=== PATIENT | male | born 1990 | race Caucasian/White ===

== ENCOUNTER 2022-09-23 15:16 | Emergency (ER) | payer SELFPAY ==
[2022-09-23 15:24] VITALS: BP 152/80; PULSE 93; RESP 16; TEMP 37.2; O2SAT 100
--- NOTE | 2022-09-23 16:17 | ED.URI ---
HPI - URI/Sore Throat General Chief Complaint: Upper Respiratory Infection Stated Complaint: Fever/Chest Congestion Time Seen by Provider: 09/23/22 16:17 Source: patient and RN notes reviewed Mode of arrival: ambulatory Limitations: no limitations History of Present Illness HPI Narrative: 32 y/o male presented for c/o worsening cough and fever up to 101 over the last 3 days. Endorses he likely had influenza one week ago, as his sons were dx with it and he had cough, fever. Patient reports temporary improvement for a few days then symptoms returned. Endorses feeling 'tight' in the chest with coughing. History of pneumonia after covid and is concerned for this again. Denies shortness of breath, wheezing, nausea, vomiting, diarrhea. Taking Tylenol and ibuprofen for symptoms. He also endorses he has cortical baby and has been moving. MD elicited complaint: cough Related Data Allergies Allergy/AdvReac Type Severity Reaction Status Date / Time No Known Allergies Allergy Mild Verified 09/23/22 16:24 Review of Systems Review of Systems: ROS per HPI Exam Narrative: GENERAL: well-appearing EYES: PERRLA, conjunctivae clear ENT: Mucous membranes moist. TMs pearly delgado with dull light reflex bilaterally; no tragal tenderness. Oropharynx erythematous without lesions or exudate, no drooling, no hoarseness, no trismus, uvula midline. CHEST: Clear to auscultation, breath sounds equal. No wheezing, rhonchi, rales, or stridor. No respiratory distress, speaks in full sentences. HEART: Regular rate and rhythm. No murmur heard. SKIN: Warm, dry, no rash. NEURO: Alert and oriented x3. PSYCH: Normal mood and affect Course Course Emergency Course: Patient is aware of diagnosis, understands and agrees to treatment plan. Anticipatory guidance given. Patient agrees to follow-up as directed and is aware of reasons to seek care at the emergency department. Portions of this record may have been created with voice recognition software Level of Care: Express Care Visit Vital Signs Vital signs: Vital Signs Temperature 98.9 F 09/23/22 15:24 Pulse Rate 93 09/23/22 15:24 Respiratory Rate 16 09/23/22 15:24 Blood Pressure 152/80 H 09/23/22 15:24 Pulse Oximetry 100 09/23/22 15:24 Oxygen Delivery Room Air 09/23/22 15:24 Temperature 98.9 F 09/23/22 15:24 Pulse Rate 93 09/23/22 15:24 Respiratory Rate 16 09/23/22 15:24 Blood Pressure 152/80 H 09/23/22 15:24 Pulse Oximetry 100 09/23/22 15:24 Oxygen Delivery Room Air 09/23/22 15:24 reviewed MDM - URI/Sore Throat MDM Narrative Medical decision making narrative: Advised supportive measures and signs/symptoms to go to the ER. Pt is appropriate for outpt treatment and f/u. Differential Diagnosis Differential diagnosis: Likely upper respiratory infection, sinusitis, viral infection and bronchitis Discharge Plan Discharge Clinical Impression: Viral infection Patient Disposition: Home, Self-Care Condition: Stable Instructions: Acute Bronchitis (ED) Additional Instructions: Recommend Flonase spray and Zyrtec (or Claritin/Smitha) over the counter Cough syrup may cause drowsiness; avoid driving or take it at night time. Tylenol 1000mg every 8 hours as needed for pain Symptomatic treatment includes: rest, fluids, and increase humidity of the air at home. Follow up with your primary care provider in 1 week. Go to the ER for worsening symptoms or concerns. Prescriptions: New prednisone 20 mg tablet 40 mg PO DAILY 5 Days Qty: 10 0RF Follow-up/Referrals: PHYSICIAN NOT ON STAFF,NONSTAFF [Primary Care Provider] - Time of Disposition: 16:41
== END 2022-09-23 16:56 | disposition home or self-care (01) ==
PROVIDERS: Emergency Provider Nurse Practitioner Family
DX: B34.9 Viral infection, unspecified (principal)
CPT/HCPCS: 99213; G0463

== ENCOUNTER 2022-11-08 09:47 | Emergency (ER) | payer OTHER, SELFPAY ==
[2022-11-08 09:52] VITALS: BP 148/76; PULSE 98; RESP 20; TEMP 39.2; O2SAT 98
--- NOTE | 2022-11-08 10:10 | ED.URI ---
HPI - URI/Sore Throat General Chief Complaint: Upper Respiratory Infection Stated Complaint: flu symptoms Time Seen by Provider: 11/08/22 10:11 Source: patient, RN notes reviewed and old records reviewed Mode of arrival: ambulatory Limitations: no limitations History of Present Illness HPI Narrative: 32 year old male accompanied by spouse and son presents to express care with complaints of symptoms of headache, fatigue, fevers, joint pains, sore throat, nasal stuffiness starting yesterday. Patient reports that he had fevers up to 102F, took Advil this morning but threw it up so then took Tylenol about an hour later and has kept this medication down. Patient remains febrile at this time with generalized malaise and body aches, denies anyone at home presently ill. Patient states that he was ill around Thanksgiving with fever for about 8 days and son had flu at that time so it was presumed that he had flu also. Patient reports that he has had 2 COVID vaccinations but no Booster, has had Flu shot. MD elicited complaint: fever, sore throat, nasal congestion and other (myalgias) Onset (ago): day(s) (1) Able to tolerate fluids by mouth: Yes Treatments prior to arrival: acetaminophen and ibuprofen Related Data Allergies Allergy/AdvReac Type Severity Reaction Status Date / Time No Known Allergies Allergy Mild Verified 09/23/22 16:24 Review of Systems Review of Systems: CONSTITUTIONAL: Reports malaise, chills, sweats, or fever. EYES: Denies visual changes, redness, or discharge. ENT: Reports rhinorrhea, congestion, sinus pain, no otalgia, positive for sore throat. CARDIOVASCULAR: Denies chest pain, palpitations, or edema. RESPIRATORY: Reports no cough.? Denies dyspnea. GASTROINTESTINAL: Denies abdominal pain,some nausea, vomiting, no diarrhea SKIN: Denies rash or itching. MUSCULOSKELETAL: Reports myalgia. NEUROLOGIC: Reports headache. All systems reviewed & are unremarkable except as noted in HPI and below PMFSH Social History Social History (Updated 11/08/22 @ 10:27 by Anyi Vaca NP) Smoking status: Never smoker Alcohol intake: current Alcohol use details: social Substance use type: does not use Gender identity (if verbalized by the patient): Male Comments At time of signature, agree with nursing past medical, surgical, social and family history. There is no relevant family history pertinent to the presenting complaint Exam Narrative: GENERAL: Well-appearing, well-nourished, and in no acute distress. HEAD: Normocephalic EYES: PERRLA, conjunctivae clear ENT: Nares clear, turbinates edematous and erythematous, clear discharge. Mucous membranes moist. TM pearly delgado with dull light reflex bilaterally; no tragal tenderness. Oropharynx erythematous without lesions. Tonsils not enlarged and without exudate, no drooling, no hoarseness, no trismus, uvula midline.post nasal drainage noted NECK: Supple. No lymphadenopathy CHEST: Clear to auscultation, breath sounds equal. No wheezing, rhonchi, rales, or stridor. No respiratory distress, speaks in full sentences.no cough noted SAO2 98% on room air HEART: Regular rate and rhythm. No murmur heard. SKIN: Warm, dry, no rash. NEURO: Alert and oriented x3. PSYCH: Normal mood and affect Course Course Emergency Course: Patient is aware of diagnosis, understands and agrees to treatment plan.? Anticipatory guidance given.? Patient agrees to follow-up as directed and is aware of reasons to seek care at the emergency department. Portions of this record may have been created with voice recognition software Level of Care: Express Care Visit Vital Signs Vital signs: Vital Signs Temperature 39.2 C H 11/08/22 09:52 Pulse Rate 98 11/08/22 09:52 Respiratory Rate 20 11/08/22 09:52 Blood Pressure 148/76 H 11/08/22 09:52 Pulse Oximetry 98 11/08/22 09:52 Oxygen Delivery Room Air 11/08/22 09:52 Temperature 39.2 C H 11/08/22 09:5
== END 2022-11-08 10:52 | disposition home or self-care (01) ==
PROVIDERS: Emergency Provider Registered Nurse; PCP Nurse Practitioner Family
DX: B34.9 Viral infection, unspecified (principal); Z20.822 Contact with and (suspected) exposure to COVID-19
CPT/HCPCS: 87081; 87426; 87804; 87880; 99213; C9803; G0463

== ENCOUNTER 2023-04-03 18:31 | Emergency (ER) | payer OTHER, SELFPAY ==
--- NOTE | ~2023-04-03 | XR_ITS ---
EXAMINATION: XR foot RT min 3V DATE: 04/03/2023 18:49 INDICATION: Right foot pain TECHNIQUE: Dorsoplantar, lateral, and 2 oblique views of the right foot were obtained. COMPARISON: None. FINDINGS: Bone alignment is normal. There is no fracture. There is soft tissue swelling of the midfoo t. IMPRESSION: 1. Soft tissue swelling without acute osseous abnormality. Reviewed, dictated and finalized at location F.
[2023-04-03 18:42] VITALS: BP 135/80; PULSE 83; RESP 18; TEMP 37.1; O2SAT 100
--- NOTE | 2023-04-03 18:50 | ED.LOWEXIN ---
HPI - Extremity Injury (Lower) General Chief Complaint: Extremity Injury, Lower Stated Complaint: Right Ankle/Foot Injury Time Seen by Provider: 04/03/23 18:50 Source: patient Mode of arrival: ambulatory Limitations: no limitations History of Present Illness HPI Narrative: 32-year-old male presents with complaint of pain to lateral aspect of right foot for 4 days. Patient states he was on vacation and [facility], rolled foot on last stair while walking down steps. Patient reports pain when ambulatory. No point tenderness. Arrived wearing a splint from home. States that his friend is an motor tune up specialist and told him to get an x-ray. Ambulatory without limp. All systems reviewed and negative except as noted above. Related Data Home Medications Medication Instructions Recorded Confirmed No Home Medications 04/03/23 04/03/23 Allergies Allergy/AdvReac Type Severity Reaction Status Date / Time No Known Allergies Allergy Mild Verified 04/03/23 18:46 Review of Systems Review of Systems: CONSTITUTIONAL: Denies fever, chills, or sweats. EYES: Denies visual changes, redness, or discharge. ENT: Denies rhinorrhea, congestion, sore throat, or otalgia. CARDIOVASCULAR: Denies chest pain, palpitations, or edema. RESPIRATORY: Denies cough or dyspnea. GASTROINTESTINAL: Denies abdominal pain, nausea, vomiting, or diarrhea. GENITOURINARY: Denies dysuria or hematuria. SKIN: Denies rash or itching. MUSCULOSKELETAL: Reports pain, swelling and bruising to right foot. NEUROLOGIC: Denies headache, numbness, or weakness. PSYCHIATRIC: Denies anxiety or depression. All other systems reviewed are negative, except as documented in HPI. PMFSH Social History Social History (Updated 11/08/22 @ 10:27 by Anyi Vaca NP) Smoking status: Never smoker Alcohol intake: current Alcohol use details: social Substance use type: does not use Gender identity (if verbalized by the patient): Male Comments At time of signature, agree with nursing past medical, surgical, social and family history. There is no relevant family history pertinent to the presenting complaint. Exam Narrative: GENERAL: This is a well-nourished, well-developed patient, in no apparent distress. HEAD: normocephalic, atraumatic. EYES: PERRL. Sclera clear/white. Vision is grossly intact. EARS: External ears normal NOSE: External nose normal NECK: Neck supple, non-tender without lymphadenopathy, masses or thyromegaly. CARDIOVASCULAR: Regular rate and rhythm without murmurs, gallops, or rubs. RESPIRATORY: Clear to auscultation. Breath sounds equal bilaterally. No wheezes, rales, or rhonchi. SKIN: warm, Dry, intact with no suspicious lesions or rash, good texture and turgor. NEURO: awake, alert, and oriented to person, place and time. There were no obvious focal neurologic abnormalities. EXTREMITIES: no point tenderness on palpation of R foot, bruising noted laterally and medial. mild swelling. ROM and distal NV intact. Course Course Level of Care: Express Care Visit Vital Signs Vital signs: Vital Signs Temperature 37.1 C 04/03/23 18:42 Pulse Rate 83 04/03/23 18:42 Respiratory Rate 18 04/03/23 18:42 Blood Pressure 135/80 04/03/23 18:42 Pulse Oximetry 100 04/03/23 18:42 Oxygen Delivery Room Air 04/03/23 18:42 Temperature 37.1 C 04/03/23 18:42 Pulse Rate 83 04/03/23 18:42 Respiratory Rate 18 04/03/23 18:42 Blood Pressure 135/80 04/03/23 18:42 Pulse Oximetry 100 04/03/23 18:42 Oxygen Delivery Room Air 04/03/23 18:42 reviewed MDM - Extremity Injury (Lower) MDM Narrative Medical decision making narrative: discussed x-ray results with pt. no fracture. pt already has splint from home. Will followup with his orthopedic friend as needed. Patient is aware of diagnosis, understands and agrees to treatment plan. Anticipatory guidance given. Patient agrees to follow-up as directed and
== END 2023-04-03 19:15 | disposition home or self-care (01) ==
PROVIDERS: Emergency Provider Nurse Practitioner Family
DX: S93.601A Unspecified sprain of right foot, initial encounter (principal); X50.9XXA Other and unspecified overexertion or strenuous movements or postures, initial encounter
CPT/HCPCS: 73630; 99213; G0463